=== PATIENT | male | born 1945 | race Caucasian/White ===

== ENCOUNTER 2017-03-10 09:16 | Outpatient (CLI) | payer MEDICARE, OTHER ==
--- NOTE | 2017-03-10 10:56 | RAD ---
LUMBAR SPINE THREE VIEWS: Technique: Lateral views were obtained in neutral, flexion, and extension positions. FINDINGS: There appear to be six non-rib bearing vertebrae. The transitional vertebra will be labelled as S1 fo r this exam, giving five lumbar type vertebra. There are large osteophytes. Vertebral body height is maintained. There is a slight anterolisthesis a t L5-S1. There is loss of disc space at L3-4, L4-5, and L5-S1. Prominent facet hypertrophy. No signif icant change in alignment with flexion or extension. IMPRESSION: Moderate degenerative changes of the lumbar spine as described. POS: [facility]
== END 2017-03-10 09:17 | disposition home or self-care (01) ==
LOC: TBSIIMAG 09:16
PROVIDERS: ATTEND Neurological Surgery
DX: M47.26 Other spondylosis with radiculopathy, lumbar region (principal)
CPT/HCPCS: 72100

== ENCOUNTER 2018-04-23 19:04 | Emergency (ER) | payer MEDICARE, OTHER ==
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
== END 2018-04-23 21:53 | disposition home or self-care (01) ==
LOC: ERS 19:04
DX: S16.1XXA Strain of muscle, fascia and tendon at neck level, initial encounter (principal); S80.02XA Contusion of left knee, initial encounter; S80.01XA Contusion of right knee, initial encounter; S20.312A Abrasion of left front wall of thorax, initial encounter; S20.311A Abrasion of right front wall of thorax, initial encounter; M54.5 Low back pain; V43.52XA Car driver injured in collision with other type car in traffic accident, initial encounter
CPT/HCPCS: 71045; 72125; 72131